=== PATIENT | female | born 1995 | race Caucasian/White ===

== ENCOUNTER → 2016-11-21 | Outpatient (CLI) | payer OTHER ==
[~2016-11-21] MED LIST: BCPILLS PO; MAGIC1 PO; MULT-506 PO
== END | disposition home or self-care (01) ==
LOC: C.LABBC 11:57
PROVIDERS: ATTEND Family Medicine
DX: E03.9 Hypothyroidism, unspecified (principal)

== ENCOUNTER → 2017-04-12 | Outpatient (CLI) | payer OTHER ==
[2017-04-12 12:53] LABS: THYROID STIMULATING HORMONE 2.3 uIu/ml (0.300-4.500)
== END | disposition home or self-care (01) ==
LOC: C.LAB 10:55
PROVIDERS: ATTEND Family Medicine
DX: E78.1 Pure hyperglyceridemia (principal); E04.0 Nontoxic diffuse goiter; Z13.1 Encounter for screening for diabetes mellitus

== ENCOUNTER → 2017-06-06 | Outpatient (CLI) | payer OTHER | END | disposition home or self-care (01) | LOC: C.PAPS 08:41 | PROVIDERS: ATTEND Obstetrics & Gynecology | DX: Z12.4 Encounter for screening for malignant neoplasm of cervix (principal); R87.612 Low grade squamous intraepithelial lesion on cytologic smear of cervix (LGSIL) ==

== ENCOUNTER → 2017-10-03 | Outpatient (CLI) | payer OTHER ==
[2017-10-06 00:33] LABS: CHLAMYDIA TRACH RNA*** NOT DETECTED (NOT DETECTED); GC (NEIS GONORRHOEAE)RNA** NOT DETECTED (NOT DETECTED)
== END | disposition home or self-care (01) ==
LOC: C.LABSPEC 13:22
PROVIDERS: ATTEND Obstetrics & Gynecology
DX: A54.9 Gonococcal infection, unspecified (principal); R87.612 Low grade squamous intraepithelial lesion on cytologic smear of cervix (LGSIL)

== ENCOUNTER → 2018-06-08 | Outpatient (CLI) | payer OTHER ==
--- NOTE | 2018-06-08 12:59 | DIAGNOSTIC IMAGING REPORT ---
THYROID ULTRASOUND CLINICAL HISTORY: Thyroid nodule. Diffuse nontoxic goiter. COMPARISON STUDY: CT of the neck January 25, 2014 at thyroid ultrasound November 16, 2015. TECHNIQUE: Sonography of the thyroid gland was performed. FINDINGS: The thyroid gland is heterogeneous and enlarged, as before. The right lobe measures 6.2 x 2.6 x 2.2 cm and the left lobe measures 5.3 x 1.9 x 1.8 cm. No discrete thyroid nodule is present. Prominent central compartment lymph nodes are noted. IMPRESSION: 1. Enlarged, heterogeneous thyroid gland which is similar appearance to previous exams. No discrete thyroid nodule identified. 2. Prominent central compartment lymph nodes which are similar to CT of January 25, 2014. Electronically signed by: Dru Harper M.D. 06/08/2018 12:58 PM Dictated Date/Time: 06/08/2018 12:54 PM
== END | disposition home or self-care (01) ==
LOC: C.ULTR 12:12
PROVIDERS: ATTEND Nurse Practitioner Adult Health
DX: E04.0 Nontoxic diffuse goiter (principal); E04.1 Nontoxic single thyroid nodule

== ENCOUNTER → 2018-06-08 | Outpatient (CLI) | payer OTHER | END | disposition home or self-care (01) | LOC: C.PAPS 15:13 | PROVIDERS: ATTEND Obstetrics & Gynecology | DX: R87.612 Low grade squamous intraepithelial lesion on cytologic smear of cervix (LGSIL) (principal) ==

== ENCOUNTER → 2018-07-09 | Outpatient (CLI) | payer OTHER | END | disposition home or self-care (01) | LOC: C.LABBC 12:49 | PROVIDERS: ATTEND Nurse Practitioner Adult Health | DX: Z00.00 Encounter for general adult medical examination without abnormal findings (principal) ==

== ENCOUNTER 2025-02-03 13:32 | Inpatient (IN) ==
[2025-02-03 14:24] LABS: Basophils # (auto) 0.03 K/uL (0.00-0.20); Basophils % (auto) 0.3 %; Eosinophils # (auto) 0.06 K/uL (0.00-0.50); Eosinophils % (auto) 0.6 %; Hematocrit (blood only) 36.9 % (37.0-47.0); Hemoglobin 12.5 g/dl (12.0-16.0); Immature Granulocytes # (auto) 0.04 K/uL (0.01-0.20); Immature Granulocytes % (auto) 0.4 %; Lymphocytes # (auto) 1.92 K/uL (1.20-3.40); Lymphocytes % (auto) 19.2 %; Mean Corpuscular Hemoglobin 28.1 pg (25.0-34.0); Mean Corpuscular Hgb Conc 33.9 g/dL (32.0-36.0); Mean Corpuscular Volume 82.9 fL (80.0-100.0); Mean Platelet Volume 10.3 fL (9.4-12.4); Monocytes # (auto) 0.85 K/uL (0.11-0.59); Monocytes % (auto) 8.5 %; Platelet Count 293 K/uL (130-400); RDW Standard Deviation 41.7 fL (36.4-46.3); Red Blood Count 4.45 M/uL (4.20-5.40)
[2025-02-03 14:44] LABS: Albumin Globulin Ratio 1.3 (0.9-2); Albumin Level 3.6 gm/dl (3.4-5.0); BUN Creatinine Ratio 15.4 (10-20); Bilirubin,Total 0.2 mg/dl (0.2-1.0); Calcium 9.9 mg/dl (8.6-10.3); Creatinine Clr Calc Pharmacy 137.7 ml/min; Globulin 2.8 gm/dl (2.5-4.0); Potassium 4.1 mmol/L (3.5-5.1); Total Protein 6.4 gm/dl (6.0-8.3)
[2025-02-03] MEDS: LABETALOL HCL IV 5 MG/ML 20ML IV STA (14:53)
[2025-02-03] MEDS: ACETAMINOPHEN 500 MG TAB PO PRN (15:31)
[2025-02-03] MEDS: METOCLOPRAMIDE HCL INJ 5 MG/ML 2 ML VIAL IV STA (15:32)
[2025-02-03 15:45] LABS: Creatinine Urine Random 19.6 mg/dl; Total Protein Urine Random < 4.0 mg/dl (0-11.9)
--- NOTE | 2025-02-03 16:16 | History & Physical Report ---
Date of Service February 03, 2025 Assessment & Plan (1) Chronic hypertension affecting : (2) with 29 completed weeks gestation: Plan Pressures responded quickly to antihypertensives. Not dipping any protein, labs all wnl (slitter scorer .78). She has no platt now after treatment. She has no other s/s or concerning labs for pet. I am thinking this is an exacerbation of her chtn and she now needs to be on meds. Plan to monitor overnight to evaluate blood pressures closely. If has more severe blood pressures again, will reach out to [facility]. fetus category one. Patient expresses understanding of the plan. antihypertensives should have probably been starting earlier in the week when her pressure was elevated at cards. Did discuss the difficulty of differentiating between exacerbation of chtn vs. pet. At this point her pressures are no longer in the severe range. Patient agreeable to plan of care. History of Present Illness Chief Complaint: elevated blood pressure in the office Primary Care Provider: Manasa Lunsford DO Patient is a [id number] with iup at 29 5/7 weeks who presents to labor and delivery from the office secondary to elevated blood pressures. Patient has been keeping track of her blood pressures at home because of a concern for chtn. She is not currently on any meds. She notes she has had slightly increased bps over the last several days at home. Patient was asx in the office but has developed a platt since coming to labor and delivery. INitial bps in the office was 174/100 and 170/94. She denies other s/s of pet. Her hx is significant for concern for chtn by cardiology (note 11/19/24). It was determined that she likely had blood pressure issues outside of with bps as high as 140/80s. therefore it was determined that she had a diagnosis before 20 weeks of and given a dx of chtn. and so was placed on a chtn protocol. She is currently not on any meds. the plan was if her pressures became more elevated that she would be placed on blood pressure meds subsequently. The patient had a normal echo. Her cbc and cmp are both wnl. slitter scorer was 0.78, baseline 0.69. She had initial pressures in labor and delivery of 160-170s/low 100. An iv was started and she was given 20mg of iv labetolol. This brought her pressures down to 150s/90s. She was then given po procardia. Urine protein to creatinine ration unable to be run because of a very low value of the urine protein. Patient notes no other s/s of pet. platt was resolved with tylenol and reglan. Pressures have responded to one dose of iv labetolol and po procardia Patient seen by cards on with bp noted in chart of 144/110 but no intervention at that time. NOtes her blood pressure went down to 140s/80s later that day and remained that way over the weekend. and Delivery Plans Does not want her mom in room for labor (and wants us to know her spouse can have tendency to almost pass out) *pt mom is employee at [employer] Enlarged Thyroid *Check TFTs Q4wks Family hx congenital heart defect-fob's father [place]22-24 weeks[place] [place] Ductal artery constriction, small VSD. Has follow up with cardiology-01/28 continued ductal arter constriction wtih improved velocities and small vsd--f/u pp, can deliver here. CHTN - saw cardiology *Baby ASA daily start 12-28 wks, continue until delivery *wkly NST's @32wks and twice wkly @36 wks *Serial Growth US @ 24 (doppler only if abnml) *Baseline 24hr urine (additioinal PRN) *weekly SUKHJINDER's @ 32wk(If on Meds) *Deliver [id number] (If on Meds) *Deliver [id number] (Not on Meds) Asthma Baseline choco daily, nasonex every day, albuterol PRN. ASCUS PAP (01/2024) *Repeat PPX Allergies Allergy/AdvReac Type Severity Reaction Status Date / Time tuberculin, purified protein Allergy Intermediate Rash Verified 02/03/25 11:23 deriva weed pollen Allergy Verified 02/03/25 11:23 No Known Drug Allergies AdvReac Unknown Verified 02/03/25 11:23 Home Medications Medication Instructions Recorded Confirmed Type albuterol sulfate 90 mcg/actuation inhalation .INHALE 2 PUFFS EVERY 09/07/20 02/03/25 History aerosol inhaler 4-6 HOURS NEEDED. PRN PNV 153-FA 400 mcg-om3 35 mg-dha tab PO 02/03/25 History 25 mg-epa 5 mg-fish oil chew tablet ( Gummies) amoxicillin 500 mg capsule 500 mg PO 3XD 02/03/25 02/03/25 History aspirin 81 mg tablet 81 mg PO DAILY 02/03/25 02/03/25 History fexofenadine-pseudoephedrine ER 1 tab PO QAM 02/03/25 02/03/25 History 180 mg-240 mg tablet,ext.release 24 hr (Choco-D 24 Hour) mometasone 50 mcg/actuation nasal 2 spray intranasal DAILY 02/03/25 02/03/25 History spray (Nasonex 24hr Allergy) Patient History Medical History (Updated 02/03/25 @ 17:05 by Faina Stewart MD, FACOG) History of chicken pox Bleeding in early Early stage of ASCUS of cervix with negative high risk HPV LGSIL on Pap smear of cervix Acne Allergic rhinitis Asthma Migraine headache Myalgia Mononucleosis syndrome Cervical lymphadenopathy Airway compromise Surgical History History of oral surgery History of colposcopy Family History Father History of Graves' disease Hypertension Diabetes Mother Hypertension Denies family history of Ovarian cancer Breast cancer Colorectal cancer Social History (Updated 02/03/25 @ 14:02 by Lucrecia Reyna RN) Smoking Status: Never smoker Do You Dip or Chew Tobacco: No; Hx Alcohol Use: No Hx Substance Use: No Preferred Language: Malaysian Communication Ability: Effective Visual Impairment: Limited Hearing Ability: Normal Land Inspector Required: No Beliefs That Will Affect Care: None marital status: marital status details: Kartik Roman(39) [phone] Current Living Situation: Spouse Current Living Situation Comment: lives with spouse, dog, cat-spouse changing litter current occupational status: employed current occupation: [employer] Diet: regular Gender Identity: Female Assistive Devices: None Physical Exam Constitutional: WD/WN, vitals as above Cardiovascular: RRR, no murmur, no edema Gastrointestinal (Abdomen): soft, gravid, nt no ruq pain Neurologic: patellar DTR's 2+ bilat, sensation intact (no clonus) Psychiatric: A+Ox3, euthymic affect Genitourinary: cx--deferred toco--none efm--130s wtih mod variability , accels to 150s, no decels Results & Data Vital Signs (Past 12 Hours) Vital Signs Temp Pulse Resp BP 02/03/25 16:09 78 02/03/25 16:09 140/90 02/03/25 15:54 76 02/03/25 15:54 152/100 H 02/03/25 15:39 86 02/03/25 15:39 156/102 H 02/03/25 15:25 89 155/96 H 02/03/25 15:24 87 02/03/25 15:24 155/96 H 02/03/25 15:11 89 02/03/25 15:11 161/94 H 02/03/25 14:53 101 H 169/111 H 02/03/25 14:50 100 H 02/03/25 14:50 169/111 H 02/03/25 14:40 106 H 02/03/25 14:40 178/119 H 02/03/25 14:30 93 H 02/03/25 14:30 165/106 H 02/03/25 14:21 94 H 02/03/25 14:21 171/109 H 02/03/25 14:00 36.8 C 104 H 20 02/03/25 14:00 163/115 H 02/03/25 13:43 97 H 164/98 H Coding Level of Care Code 88806 INT INP/OBS CARE 1/40MIN Diagnoses Chronic hypertension affecting O10.919 with 29 completed weeks gestation Z3A.29
[2025-02-03] MEDS: NIFEdipine EXTENDED REL 30 MG TABCR PO STA (16:20)
[2025-02-03] MEDS: LABETALOL HCL IV 5 MG/ML 20ML IV ONE (17:53)
--- NOTE | 2025-02-03 18:11 | Obstetrical Progress Note ---
Date of Service February 03, 2025 Assessment & Plan (1) with 29 completed weeks gestation: (2) Chronic hypertension affecting : Plan Discussed the situation with MFTanner Cummings from [place]. After hearing the story, she believes this is an exacerbation of her chtn as she has no other concerns for pet. She notes that she needs to be admitted for obs for titration of her blood pressures. She suggests we treat acutely with IV labetolol and then start po labetolol at 200mg q8 hours--to start an hour after her iv dose. If this manages the patient then great, but can titrate up based on bp response. If anything else in her clinical course changes or unable to control bps, would consider transfer to tertiary care center for more intensive management. fetus reassuring category one. Explained to the patient who expresses understanding. Subjective comfortable, platt resolved. no other s/s Physical Exam Physical Exam: bp 175/104 after returning from the bathroom and resting in bed for 10 minutes Results & Data Vital Signs (Past 12 Hours) Vital Signs Temp Pulse Resp BP 02/03/25 17:53 85 175/104 H 02/03/25 17:40 82 02/03/25 17:40 175/104 H 02/03/25 17:24 79 02/03/25 17:24 168/96 H 02/03/25 17:10 84 02/03/25 17:10 160/98 H 02/03/25 16:54 86 02/03/25 16:54 141/84 H 02/03/25 16:39 84 02/03/25 16:39 146/87 H 02/03/25 16:25 80 02/03/25 16:25 146/86 H 02/03/25 16:09 78 02/03/25 16:09 140/90 02/03/25 15:54 76 02/03/25 15:54 152/100 H 02/03/25 15:39 86 02/03/25 15:39 156/102 H 02/03/25 15:25 89 155/96 H 02/03/25 15:24 87 02/03/25 15:24 155/96 H 02/03/25 15:11 89 02/03/25 15:11 161/94 H 02/03/25 14:53 101 H 169/111 H 02/03/25 14:50 100 H 02/03/25 14:50 169/111 H 02/03/25 14:40 106 H 02/03/25 14:40 178/119 H 02/03/25 14:30 93 H 02/03/25 14:30 165/106 H 02/03/25 14:21 94 H 02/03/25 14:21 171/109 H 02/03/25 14:00 36.8 C 104 H 20 02/03/25 14:00 163/115 H 02/03/25 13:43 97 H 164/98 H PG Care Time/CCT Total # of Minutes Spent Total Time Spent with Patient: Total time spent is greater than 50% in coordination of care (as documented) at patient's floor/unit and/or counseling patient: Coding Level of Care Code 97607 SUB INP/OBS CARE 12/14MIN Diagnoses with 29 completed weeks gestation Z3A.29 Chronic hypertension affecting O10.919
[2025-02-03] MEDS: AMOXICILLIN 500 MG CAP PO SCH (20:06)
[2025-02-03] MEDS: LABETALOL HCL 200 MG TAB PO SCH (20:06)
--- NOTE | 2025-02-03 20:13 | Communication Note ---
Date of Service: February 03, 2025 Patient is comfortable and asymptomatic. Her pressure responded promptly to iv labetolol. Now po dosing. Currently 140s/90s. Will monitor closely. Labs to repeat in the am.
[2025-02-03] MEDS ORDERED: LABETALOL HCL 200 MG TAB PO SCH (22:00)
[2025-02-03] MEDS: SODIUM CHLORIDE 0.65% NA SOLN 45 ML (OCEAN) PRN (23:38)
[2025-02-04 06:27] LABS: Basophils # (auto) 0.03 K/uL (0.00-0.20); Basophils % (auto) 0.3 %; Eosinophils # (auto) 0.11 K/uL (0.00-0.50); Hematocrit (blood only) 34.2 % (37.0-47.0); Hemoglobin 11.4 g/dl (12.0-16.0); Immature Granulocytes # (auto) 0.05 K/uL (0.01-0.20); Immature Granulocytes % (auto) 0.5 %; Lymphocytes # (auto) 2.89 K/uL (1.20-3.40); Lymphocytes % (auto) 27.2 %; Mean Corpuscular Hemoglobin 27.7 pg (25.0-34.0); Mean Corpuscular Hgb Conc 33.3 g/dL (32.0-36.0); Mean Platelet Volume 10.2 fL (9.4-12.4); Monocytes # (auto) 1.04 K/uL (0.11-0.59); Monocytes % (auto) 9.8 %; Neutrophils % (auto) 61.2 %; Platelet Count 269 K/uL (130-400); RDW Coefficient of Variation 14.3 % (11.5-14.5); RDW Standard Deviation 42.6 fL (36.4-46.3); Red Blood Count 4.12 M/uL (4.20-5.40); White Blood Count 10.62 K/ul (4.8-10.8)
[2025-02-04 06:39] LABS: Albumin Globulin Ratio 1.4 (0.9-2); Albumin Level 3.3 gm/dl (3.4-5.0); BUN Creatinine Ratio 14.1 (10-20); Bilirubin,Total 0.2 mg/dl (0.2-1.0); Creatinine Clr Calc Pharmacy 137.7 ml/min; Globulin 2.4 gm/dl (2.5-4.0); Total Protein 5.7 gm/dl (6.0-8.3)
--- NOTE | 2025-02-04 06:45 | Obstetrical Progress Note ---
Date of Service February 04, 2025 Assessment & Plan (1) with 29 completed weeks gestation: (2) Chronic hypertension affecting : Plan Pressures much improved now that they are appropriately treated. Would plan on moving to the floor later today for close observation. Allow to eat. Treat migraine platt with tylenol, does have a hx of migraine in the past. Continue amoxicillin for sinus infection. Labs this am are stable. Subjective Patient remained in labor and delivery overnight. She was able to get some rest. She notes an intermittent platt , max a 5/10. However, this has now progressed into what she would term a normal migraine platt for her--left sided, pulsating. Otherwise no other symtpoms. Pressures have been in the 120-130/80. Her dose of labetolol this am is late. Due at 4am and just now getting because on a TID schedule and not q 8 hours. Repeat labs this an are wnl and stable without changes. Physical Exam Constitutional: WD/WN, vitals as above Cardiovascular: Extremities: + edema (tr); no calf tenderness Gastrointestinal (Abdomen): soft, gravid, nt, no ruq pain Neurologic: patellar DTR's 2+ bilat, sensation intact (no clonus) Psychiatric: A+Ox3, euthymic affect Genitourinary: toco--neg efm--130s wtih mod variabiltiy, accels present Results & Data Vital Signs (Past 12 Hours) Vital Signs Temp Pulse BP 02/04/25 06:00 83 136/83 02/04/25 05:06 77 143/95 H 02/04/25 04:21 83 125/79 02/04/25 03:21 100 H 129/87 02/04/25 02:21 93 H 135/85 02/04/25 01:21 97 H 121/71 02/04/25 00:12 96 H 138/97 02/03/25 23:41 90 02/03/25 23:41 139/92 02/03/25 23:37 36.5 C 02/03/25 23:11 86 02/03/25 23:11 134/88 02/03/25 22:41 85 02/03/25 22:41 138/87 02/03/25 22:11 90 02/03/25 22:11 142/93 H 02/03/25 20:36 89 02/03/25 20:36 143/85 H 02/03/25 20:21 105 H 02/03/25 20:21 154/92 H 02/03/25 20:06 93 H 02/03/25 20:06 146/90 H 02/03/25 19:51 97 H 02/03/25 19:51 150/95 H 02/03/25 19:36 93 H 02/03/25 19:36 147/95 H 02/03/25 19:22 94 H 02/03/25 19:22 158/103 H 02/03/25 19:00 36.6 C 02/03/25 18:54 90 02/03/25 18:54 157/93 H PG Care Time/CCT Total # of Minutes Spent Total Time Spent with Patient: Total time spent is greater than 50% in coordination of care (as documented) at patient's floor/unit and/or counseling patient: Coding Level of Care Code 57947 SUB INP/OBS CARE 12/14MIN Diagnoses with 29 completed weeks gestation Z3A.29 Chronic hypertension affecting O10.919
[2025-02-04] MEDS: LABETALOL HCL IV 5 MG/ML 20ML IV ONE (07:24)
[2025-02-04] MEDS: LABETALOL HCL IV 5 MG/ML 20ML IV STA ×2 (07:24)
[2025-02-04] MEDS: PROMETHAZINE 25 MG/51 ML BAG IV STA (09:01)
[2025-02-04] MEDS: MAGNESIUM OXIDE 400 MG TAB PO SCH (12:12)
--- NOTE | 2025-02-04 12:28 | Obstetrical Progress Note ---
Date of Service February 04, 2025 Subjective BPs 140s/90s - headache central, behind eyes. [place] a bit better after shower and now eating. Taking tylenol for headache, offered magnesium - she has had diarrhea in the past with this and declines. Will continue monitoring - if BPs remain elevated, could consider increasing labetalol. Results & Data Vital Signs (Past 12 Hours) Vital Signs Temp Pulse Resp BP 02/04/25 12:08 100 H 144/98 H 02/04/25 10:57 36.6 C 18 02/04/25 10:57 83 141/92 H 02/04/25 09:59 85 137/81 02/04/25 09:00 88 141/95 H 02/04/25 08:02 86 147/92 H 02/04/25 07:59 20 02/04/25 07:59 36.5 C 20 02/04/25 07:30 18 02/04/25 07:30 18 02/04/25 07:15 18 02/04/25 07:07 98 H 149/96 H 02/04/25 06:00 83 136/83 02/04/25 05:06 77 143/95 H 02/04/25 04:21 83 125/79 02/04/25 03:21 100 H 129/87 02/04/25 02:21 93 H 135/85 02/04/25 01:21 97 H 121/71 PG Care Time/CCT Total # of Minutes Spent Total Time Spent with Patient: Total time spent is greater than 50% in coordination of care (as documented) at patient's floor/unit and/or counseling patient: Coding Level of Care Code None
[2025-02-04] MEDS: LABETALOL HCL 100 MG TAB PO ONE (15:22)
[2025-02-04] MEDS: NIFEdipine 10 MG CAP PO STA (20:42)
[2025-02-04] MEDS: LABETALOL HCL 200 MG TAB PO SCH (21:42)
[2025-02-04] MEDS ORDERED: LABETALOL HCL 300 MG TAB PO SCH (22:00)
[2025-02-04] MEDS: PROMETHAZINE HCL 25 MG TAB PO ONE (22:11)
[2025-02-05 03:39] VITALS: O2SAT 97
[2025-02-05 07:33] LABS: Hematocrit (blood only) 35.5 % (37.0-47.0); Hemoglobin 11.8 g/dl (12.0-16.0); Mean Corpuscular Hemoglobin 27.5 pg (25.0-34.0); Mean Corpuscular Hgb Conc 33.2 g/dL (32.0-36.0); Mean Corpuscular Volume 82.8 fL (80.0-100.0); Mean Platelet Volume 10.1 fL (9.4-12.4); Platelet Count 310 K/uL (130-400); RDW Coefficient of Variation 14.5 % (11.5-14.5); RDW Standard Deviation 42.5 fL (36.4-46.3); Red Blood Count 4.29 M/uL (4.20-5.40); White Blood Count 9.35 K/ul (4.8-10.8)
[2025-02-05 07:43] LABS: Albumin Globulin Ratio 1.3 (0.9-2); Albumin Level 3.4 gm/dl (3.4-5.0); BUN Creatinine Ratio 14.5 (10-20); Bilirubin,Total 0.3 mg/dl (0.2-1.0); Calcium 8.8 mg/dl (8.6-10.3); Creatinine Clr Calc Pharmacy 141.3 ml/min; Globulin 2.7 gm/dl (2.5-4.0); Potassium 3.9 mmol/L (3.5-5.1); Total Protein 6.1 gm/dl (6.0-8.3)
--- NOTE | 2025-02-05 07:52 | Obstetrical Progress Note ---
Date of Service February 05, 2025 Assessment & Plan (1) Hypertension: (2) Chronic hypertension affecting : Plan Discussion with patient that if BPs remain stable, will likely plan for DC home today with followup BP in office on Monday. This morning's lab results now available and reviewed - negative preeclampsia labs. Admission and Anticipated Discharge Date Admission Date: February 04, 2025 Subjective Patient has a mild nose bleed - feels like this is because of dry air in hospital. Using saline spray, asking for some vaseline. Finally got some sleep last night after taking dose of phenergan. Feels like headache comes and goes - is feeling well at this point. Eating/drinking ok. Ambulating ok. Yesterday, increased labetalol dosing from 200mg Q8 to 300mg then when she had an elevation to 160/110s rec'd 1 dose Procardia 10mg IR, and increased labetalol to 400mg (received the 400mg dose at 10pm). Overnight, BPs have been within appropriate range. Lab at bedside for this morning's CBC, CMP. Review of Systems Review of Systems: All systems reviewed & are unremarkable except as noted in HPI & below Physical Exam Constitutional: WD/WN, vitals as above Respiratory: normal respiratory effort, lungs clear to auscultation no respiratory distress Cardiovascular: Rate/Rhythm: regular rate and regular rhythm Gastrointestinal (Abdomen): Inspection/Auscultation: abdomen normal to inspection Percussion/Palpation: abdomen soft; abdomen nontender Gravid. No s/s chorio or abruption. Skin: no rashes, warm and dry Psychiatric: A+Ox3, euthymic affect Results & Data Vital Signs (Past 12 Hours) Vital Signs Temp Pulse Pulse Resp BP Pulse Ox O2 Del Method 02/05/25 05:58 36.7 C 85 137/92 02/05/25 03:00 88 16 132/81 97 Room Air 02/04/25 23:20 36.4 C L 92 H 18 130/85 99 Room Air 02/04/25 21:40 100 H 151/99 H 02/04/25 21:05 157/100 H 02/04/25 20:43 78 02/04/25 20:42 168/111 H 02/04/25 19:50 37.2 C 86 18 150/105 H 96 Room Air PG Care Time/CCT Total # of Minutes Spent Total Time Spent with Patient: Total time spent is greater than 50% in coordination of care (as documented) at patient's floor/unit and/or counseling patient: Coding Level of Care Code 56883 SUB INP/OBS CARE MIN Diagnoses Hypertension I10 Chronic hypertension affecting O10.919
[2025-02-05 09:35] VITALS: RESP 20; TEMP 98.6
[2025-02-05 15:34] VITALS: BP 139/99
[2025-02-05] MEDS: BETAMETH SOD PHOS/ACETATE IA 6 MG/ML IM STA (16:08)
[2025-02-05 16:24] VITALS: PULSE 88
--- NOTE | 2025-02-05 19:16 | Obstetrical Progress Note ---
Date of Service February 05, 2025 Assessment & Plan (1) Chronic hypertension affecting : Plan: Please see HPI for assessment and plan information (2) Supervision of normal first : Admission and Anticipated Discharge Date Admission Date: February 04, 2025 Jaylan Ruiz is a 29-year-old G1, P0 at 30 weeks 0 days gestational age admitted for a chronic hypertensive exacerbation. Patient has noted intermittent headache but otherwise denying any preeclampsia symptoms. No sustained headaches noted and patient reporting headache improved this afternoon. Had a negative protein creatinine ratio which was bit low limit of detection on admission. Labile blood pressures have been noted throughout her admission ranging from normotensive to lower end of severe range. Currently on 400 mg of labetalol 3 times daily with labile blood pressure still noted. Patient is requesting discharge and feels that she is able to monitor blood pressures while at home. 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 Patient denying any preeclampsia symptoms. We reviewed preeclampsia precautions in detail. We discussed that at this point she is meeting criteria for a chronic hypertensive exacerbation but this could progress into preeclampsia at any time. We discussed concern that there may be a indication for delivery and recommended betamethasone and discussed dosing recommendations and indications for the medication. Risk and benefits of medication discussed and patient verbally consented. Will plan for first dose today and a follow-up dose tomorrow at 24 hours. Discussed monitoring blood pressures 2-3 times daily in addition to monitoring for preeclampsia symptoms. Recommend that she call if she has blood pressures greater than 160/110 for formal evaluation. Patient voiced understanding of all recommendations and symptoms to monitor for. Will plan for blood pressure check with betamethasone tomorrow and clinic visit on Monday with NST and growth ultrasound per her OB protocol. Pertinent changes in history added to her OB chart. Results & Data Vital Signs (Past 12 Hours) Vital Signs Temp Pulse Resp BP BP 02/05/25 15:32 151/102 H 139/99 02/05/25 13:52 148/96 H 02/05/25 11:00 163/97 H 152/95 H 02/05/25 09:00 148/95 H 145/100 H 02/05/25 07:30 37.0 C 85 20 153/107 H 154/111 H 02/05/25 05:58 36.7 C 85 137/92 PG Care Time/CCT Total # of Minutes Spent Total Time Spent with Patient: Total time spent is greater than 50% in coordination of care (as documented) at patient's floor/unit and/or counseling patient: Coding Level of Care Code 93439 SUB INP/OBS CARE 2MIN Diagnoses Chronic hypertension affecting O10.919 Encounter for supervision of normal first in third trimester Z34.03 Trimester: third trimester (2) Supervision of normal first Trimester: third trimester Qualified Code(s): Z34.03 - Encounter for supervision of normal first , third trimester
== END 2025-02-05 16:40 | disposition home or self-care (01) | DRG 833 ==
LOC: OPB 13:32 → 4S1 13:34 → 4E1 02-04 13:00